=== PATIENT | female | born 1975 | race Caucasian/White ===

== ENCOUNTER → 2016-11-26 | Outpatient (CLI) | payer OTHER ==
[~2016-11-26] MED LIST: CLARITIN10 M3 PO; HCTZ PO; NAPROXEN SODIU220 M1 PO; VITAMIN D250000 UNIT PO; VYVANSE50 MG PO; ZANTAC150 M1 PO
== END | disposition home or self-care (01) ==
LOC: CBAR 13:30
DX: Z01.812 Encounter for preprocedural laboratory examination (principal); E66.01 Morbid (severe) obesity due to excess calories
CPT/HCPCS: 36415; 84443; 86677; G0463

== ENCOUNTER → 2016-12-06 | Outpatient (CLI) | payer OTHER ==
--- NOTE | ~2016-12-06 | EKG ---
PATIENT: JANIE LEYVA UNIT #: [id number] Ventricular Rate: 87 BPM Atrial Rate: 87 BPM P-R Interval: 144 ms QRS Duration: 70 ms Q-T Interval: 344 ms QTC Calculation(Bezet): 413 ms P Birchwood: 6 degrees Calculated R [place]ch[place]: 35 degrees Calculated T Birch[place]: 29 degrees Diagnosis Line: Normal sinus rhythm Diagnosis Line: Poor R wave progression questionable lead position Diagnosis Line: or body habitus Otherwise normal ECG Diagnosis Line: No previous ECGs available Diagnosis Line: Confirmed by KELLIE SUTTON MD ([id number]) on 12/06/2016 Diagnosis Line: 8:10:00 PM INTERPRETING MD: LESLEY BENJAMIN
--- NOTE | ~2016-12-06 | CR97 ---
[facility] A Service of [facility] & [facility] RADIOLOGY TEXT RESULTS PATIENT: JANIE LEYVA LOCATION: [facility] : [birth year] UNIT #: [id number] AGE: [address]: Marcello Manzano MD SEX: F ORDER DR: [id number] [facility] [address] [place], [place] [address] [id number] O MR#: [id number] Acc #: [id number] NAME: JANIE LEYVA : 1975 SEX: F STUDY DATE/TIME: 12/06/2016 7:59 UNIT: [facility] ROOM: STUDY DESCRIPTION: CR Esophagram Attending Physician: Marcello Manzano M.D. Referring Physician: Marcello Manzano M.D. Ordering Physician: Marcello Manzano M.D. Primary Care Physician: Chan Thomson M.D. MEDICAL IMAGING REPORT This report is preliminary unless electronic signature is present EXAM Barium esophagram 12/06/2016 HISTORY SUPPLIED Preop lap-band surgery. FINDINGS Barium was administered under fluoroscopic control in the upright and recumbent positions. Swallowing is normal and the esophagus is normal in course, caliber, mucosal pattern, and distensibility. Total fluoroscopy time was 1.2 minutes. Total images recorded, 26 images. CONCLUSION 1. Normal. Dictated by... Marcello Gomes M.D. THIS IS AN ELECTRONICALLY VERIFIED REPORT Marcello Gomes M.D. at 12/06/2016 4:40 PM SYLVIA/samuel TD: 12/06/2016 11:28 JOB #: [id number] MEDICAL IMAGING REPORT Page 1 of 1 COPY
--- NOTE | ~2016-12-06 | CR63 ---
[facility] A Service of [facility] & [facility] RADIOLOGY TEXT RESULTS PATIENT: JANIE LEYVA LOCATION: [facility] : [birth year] UNIT #: [id number] AGE: [address]: Marcello Manzano MD SEX: F ORDER DR: [id number] [facility] [address] [place], [place] [address] [id number] O MR#: [id number] Acc #: [id number] NAME: JANIE LEYVA : 1975 SEX: F STUDY DATE/TIME: 12/06/2016 7:31 UNIT: [facility] ROOM: STUDY DESCRIPTION: CR Chest 2 View Attending Physician: Marcello Manzano M.D. Referring Physician: Marcello Manzano M.D. Ordering Physician: Marcello Manzano M.D. Primary Care Physician: Chan Thomson M.D. MEDICAL IMAGING REPORT This report is preliminary unless electronic signature is present EXAM Chest PA and lateral 12/06/2016 HISTORY Morbid obesity, preop laparoscopic gastric banding, shortness of breath on exertion today. Benign essential hypertension. FINDINGS The heart is normal in size. There is widening of the right paratracheal stripe. Underlying mass or adenopathy is not excluded. Correlation with chest CT with contrast is suggested. The lungs are otherwise clear. There are no pleural effusions. IMPRESSION Widening of the right paratracheal stripe. Underlying mass or adenopathy is not excluded. Correlation with chest CT with contrast is suggested. STAT * RESULT Dictated by... Ankit James M.D. THIS IS AN ELECTRONICALLY VERIFIED REPORT Ankit James M.D. at 12/06/2016 4:35 PM HARMEET/samuel TD: 12/06/2016 08:52 JOB #: [id number] MEDICAL IMAGING REPORT Page 1 of 1 COPY
[2016-12-06 09:22] LABS: HEMATOCRIT 43.3 % (35.0-45.0); HEMOGLOBIN 14.1 gm/dL (12.0-16.0); MEAN CELL VOLUME 94.2 FL (83-96); MEAN CORPUSCULAR HEMOGLOBIN 30.7 PG (28-34); MEAN CORPUSCULAR HGB CONC 32.6 g/dL (30-36); MEAN PLATELET VOLUME 8.4 FL (6.5-11.5); RED BLOOD COUNT 4.59 X10e (3.90-5.30); RED CELL DISTRIBUTION WIDTH 12.7 % (11.0-15.5)
[2016-12-06 10:36] LABS: ALBUMIN SERUM 4.2 g/dL (3.5-5.0); BILIRUBIN,TOTAL 0.5 mg/dL (0.2-2.0); BUN/CREATININE RATIO 13.75; CALCIUM SERUM 9.2 mg/dL (8.4-10.2); CREATININE SERUM 0.8 mg/dL (0.6-1.4); GLOM FILT RATE Estimated 92.3 mL/min (>60); POTASSIUM 4.8 mmol/L (3.5-5.1); PROTEIN TOTAL SERUM 6.9 g/dL (6.0-8.3)
== END | disposition home or self-care (01) ==
LOC: CRAD 07:18 → CAMB 09:00
PROVIDERS: Surgery
DX: Z01.818 Encounter for other preprocedural examination (principal); E66.01 Morbid (severe) obesity due to excess calories
CPT/HCPCS: 36415; 71020; 74220; 80053; 80061; 84443; 85027; 93005

== ENCOUNTER → 2016-12-18 | Day surgery (SDC) | payer OTHER ==
--- NOTE | ~2016-12-18 | CT55 ---
[facility] A Service of [facility] RADIOLOGY TEXT RESULTS PATIENT: JANIE LEYVA LOCATION: [facility] : [birth year] UNIT #: [id number] AGE: [address]: Marcello Manzano MD SEX: F ORDER DR: [id number] [facility] [address] [place], [place] [address] [id number] O MR#: [id number] Acc #: [id number] NAME: JANIE LEYVA : 1975 SEX: F STUDY DATE/TIME: 12/18/2016 7:39 UNIT: [facility] ROOM: STUDY DESCRIPTION: CT Chest W Con Attending Physician: Marcello Manzano M.D. Referring Physician: Marcello Manzano M.D. Ordering Physician: Marcello Manzano M.D. Primary Care Physician: Chan Thomson M.D. MEDICAL IMAGING REPORT This report is preliminary unless electronic signature is present EXAM CT chest with contrast INDICATIONS Wide mediastinum on recent chest radiograph. Preoperative evaluation prior to lap-band placement. PROCEDURE Contrast-enhanced CT of the chest 80 mL of Isovue-[address] exam was performed with one or more of the following radiation dose reduction techniques: automatic exposure control, adjustment of mA and/or kV according to patient size, and iterative reconstruction. COMPARISON Two-view chest from 12/06/2016 FINDINGS The lungs are clear. No dense consolidation. No pleural fluid. No pneumothorax. There are mild to moderately prominent lymph nodes throughout the mediastinum and hilar regions. Index right paratracheal node measures 1.9 cm. There is a lobulated nodule in the upper right breast that measures 2.3 cm. Likely hepatic steatosis. No acute findings in the included upper abdomen. No aggressive appearing bone lesion. IMPRESSION 1. No acute findings. 2. Nonspecific mediastinal and hilar adenopathy. Benign process is favored but other possibilities are not excluded and recommend [facility] A Service of [facility] RADIOLOGY TEXT RESULTS PATIENT: JANIE LEYVA LOCATION: [facility] : [birth year] UNIT #: [id number] AGE: [address]: Marcello Manzano MD SEX: F ORDER DR: correlation with any relevant history. These can be followed to document improvement. 3. A 2.3 cm nodular area in the upper right breast may represent a true underlying lesion or asymmetric breast tissue. Correlate with mammography. 4. Likely hepatic steatosis. Dictated by... Royer Britt M.D. THIS IS AN ELECTRONICALLY VERIFIED REPORT Royer Britt M.D. at 12/20/2016 10:10 PM SANTIAGO/negar TD: 12/18/2016 12:05 JOB #: [id number] MEDICAL IMAGING REPORT Page 1 of 1 COPY
--- NOTE | ~2016-12-18 | CR7 ---
[facility] A Service of [facility] & [facility] RADIOLOGY TEXT RESULTS PATIENT: JANIE LEYVA LOCATION: [facility] : 77 UNIT #: [id number] AGE: [address]: Marcello Manzano MD SEX: F ORDER DR: [id number] [facility] [address] [place], [place] [address] [id number] O MR#: [id number] Acc #: [id number] NAME: JANIE LEYVA : 1975 SEX: F STUDY DATE/TIME: 12/18/2016 10:52 UNIT: [facility] ROOM: STUDY DESCRIPTION: CR Abdomen Single AP View Attending Physician: Marcello Manzano M.D. Referring Physician: Marcello Manzano M.D. Ordering Physician: Marcello Manzano M.D. Primary Care Physician: Chan Thomson M.D. MEDICAL IMAGING REPORT This report is preliminary unless electronic signature is present EXAM Abdomen 12/18/2016 INDICATION Gastric band placement today. Abdominal pain. FINDINGS Supine view of the abdomen was obtained. Gastric band is present with a supine phi angle of 46 degrees. Port is in the left lower abdomen. Bowel gas pattern normal. There is excreted IV contrast in the renal collecting systems from an earlier chest CT today. IMPRESSION Gastric band in place with a phi angle of 46 degrees. Dictated by... Aryan Marinelli Jr., M.D. THIS IS AN ELECTRONICALLY VERIFIED REPORT Aryan Marinelli Jr., M.D. at 12/18/2016 6:33 PM ELLI/manjeet TD: 12/18/2016 13:18 JOB #: [id number] MEDICAL IMAGING REPORT Page 1 of 1 COPY
== END | disposition home or self-care (01) ==
LOC: CSUR 06:43 → EDSTATUS 09:00 → CSUR 09:00
DX: E66.01 Morbid (severe) obesity due to excess calories (principal); Z68.41 Body mass index [BMI] 40.0-44.9, adult; K44.9 Diaphragmatic hernia without obstruction or gangrene; Z72.4 Inappropriate diet and eating habits; K21.9 Gastro-esophageal reflux disease without esophagitis; I10 Essential (primary) hypertension
CPT/HCPCS: 71260; 74000; C1781; J0690; J1650; J1885; J2250; J2405; J3010; Q9967

== ENCOUNTER → 2016-12-18 | Outpatient (CLI) | payer OTHER ==
--- NOTE | ~2016-12-18 | OR ---
Unit #: [id number] #: [id number] Patient: JANIE LEYVA [id number] [address] [place], [place] [address] [id number] O MR#: [id number] NAME: JANIE LEYVA ROOM: Date of Procedure: 12/18/2016 Admission Date: 12/18/2016 Surgeon: Marcello Manzano M.D. : 1975 Attending Physician: Marcello Manzano M.D. Referring Physician: Marcello Manzano M.D. Primary Care Physician: Chan Thomson M.D. OPERATIVE REPORT PREOPERATIVE DIAGNOSIS Chronic morbid obesity, body mass index of 39. POSTOPERATIVE DIAGNOSES 1. Chronic morbid obesity, body mass index of 39. 2. Paraesophageal hiatal hernia. PROCEDURES PERFORMED 1. Laparoscopic adjustable gastric band. 2. Laparoscopic paraesophageal hiatal hernia repair. [facility] Az Barajas M.D. ANESTHESIA General endotracheal anesthesia. ESTIMATED BLOOD LOSS Minimal. IV FLUIDS 800 crystalloid. COMPLICATIONS None. INDICATIONS FOR PROCEDURE The patient is a 41-year-old with chronic morbid obesity. DESCRIPTION OF PROCEDURE The patient was taken to the operating room and placed in supine position. General anesthesia was induced. The abdomen was prepped and draped. A 3-cm incision was then made left of the midline. A 10-mm Visiport was then placed intraabdominal under direct vision. The abdomen was insufflated to 15 mmHg with CO2. The patient was then placed in a steep reversed Trendelenburg. General inspection of the abdomen revealed what appeared to be a paraesophageal hernia. This was identified with a defect at the diaphragm using anterior palpation with the instrument. We then made a small incision in the subxiphoid region. A Timi liver retractor was then placed intraabdominal and used to retract the left lobe of the liver upward to further expose the paraesophageal hernia and GE junction. I then placed a 5-mm port in the right upper quadrant, a 10-mm Unit #: [id number] #: [id number] Patient: JANIE LEYVA port in the left upper quadrant, and another 5-mm port in the left lower quadrant. The stomach was retracted medial and downward. Upon retracting the stomach, we took down the paraesophageal ligament, exposing the right and left dimitri at the paraesophageal hernia. Any hernia sac was reduced. We then repaired the paraesophageal hernia using interrupted #0 Ethibond sutures in a [id number] type fashion. This formed a snug repair to the anterior esophagus. We then retracted the stomach medially and further exposed the angle of His using Bovie electrocautery. The stomach was then retracted laterally. We then took down the hepatogastric ligament with Bovie electrocautery. This exposed the right dimitri. Using blunt dissection, I created a retrogastric tunnel from this point to the angle of His. The band was then placed intraabdominal through the 10-mm port site. This was then brought through the retrogastric tunnel in a pars flaccida technique. The band was then closed anteriorly to form a 20-mL to 25-mL anterior gastric pouch. The fundus was then secured to the anterior pouch to prevent movement around the stomach using two interrupted #0 Ethibond sutures. A third suture was then used as a gathering stitch from the lesser curve to the anterior stomach, gathering and imbricating the remaining fundus of the stomach. The tubing was then brought out through the midline 10-mm port site. All ports and the Timi liver retractor were removed under direct vision with no evidence of abdominal hemorrhage. A polypropylene mesh was then secured to the posterior face of the laparoscopic band port. This was secured using #0 Ethibond suture. This was then cut to shape. The port was then connected to the tubing and placed into a subcutaneous pocket just anterior to the rectus sheath. Its position was then confirmed. All tubing was then placed intraabdominal. The wounds were then closed with interrupted 4-0 Vicryl. The patient tolerated the procedure well and was sent to the recovery room in good condition. Dictated by... Rebecca Leger/bubba TD: 12/18/2016 23:24 JOB #: [id number] OPERATIVE REPORT Page 1 of 1 X Marcello Manzano MD X PROCEDURE OPERATIVE NOTE
== END | disposition home or self-care (01) ==
LOC: CCAT 07:40
DX: K44.9 Diaphragmatic hernia without obstruction or gangrene (principal); R59.0 Localized enlarged lymph nodes; N63 Unspecified lump in breast
CPT/HCPCS: 71260; J0330; J2710; Q9967